=== PATIENT | female | born 1985 | race Caucasian/White ===

== ENCOUNTER 2020-10-13 09:16 | Emergency (ER) | payer OTHER ==
[2020-10-13 11:13] LABS: BASOPHIL 0.2 % (0-2); EOSINOPHIL 0.1 % (0-5); HCT 43.2 % (37.0-47.0); HGB 14.9 g/dl (12.5-16.0); LYMPHOCYTE 10.4 % (15-48); MCH 31.8 pg (25.0-31.0); MCHC 34.5 g/dL (32.0-36.0); MCV 92.1 fL (78.0-100.0); MONOCYTE 4.1 % (0-12); MPV 9.7 fL (6.0-9.5); NEUTROPHIL 84.9 % (41-80); NRBC 0; PLT 204 K/uL (150-400); RBC 4.69 M/uL (4.20-5.40); RDW 12.3 % (11.5-14.0); WBC 12.5 K/uL (4.0-10.5)
[2020-10-13 11:14] LABS: BILIRUBIN NEGATIVE (NEGATIVE); BLOOD TRACE-INTACT Ery/uL (NEGATIVE); CLARITY CLEAR (CLEAR); COLOR YELLOW (YELLOW); GLUCOSE (U) NORMAL (NORMAL); LEUKOCYTES TRACE Leu/uL (NEGATIVE); NITRITE NEGATIVE (NEGATIVE); PROTEIN NEGATIVE (NEGATIVE); UROBILINOGEN 0.2 mg/dL (0.2-1.0)
[2020-10-13 11:27] LABS: BACTERIA 1+; YEAST PRESENT
[2020-10-13 11:54] LABS: ALBUMIN 4.3 g/dL (3.4-5.0); BILIRUBIN - TOTAL 0.4 mg/dL (0.2-1.0); BUN/CREAT RATIO (CALC) 21.7 RATIO; CREATININE 0.6 mg/dL (0.51-0.95); GLOBULIN (CALCULATION) 3.5 g/dL; POTASSIUM 3.6 mmol/L (3.5-5.1); TOTAL PROTEIN 7.8 g/dL (6.4-8.2)
[2020-10-13] MEDS ORDERED: METRONIDAZOLE500 MG PO (13:15)
[2020-10-13] MEDS ORDERED: CIPRO500 MG PO (13:15)
[2020-10-13] MEDS ORDERED: BENTYL10 MG PO (13:15)
[2020-11-11] MEDS ORDERED: WELLBUTRIN75 MG PO (13:12)
== END 2020-10-13 13:58 | disposition home or self-care (01) ==
LOC: FER 09:16
PROVIDERS: Emergency Medicine
DX: K52.9 Noninfective gastroenteritis and colitis, unspecified (principal); N83.202 Unspecified ovarian cyst, left side; Z90.49 Acquired absence of other specified parts of digestive tract
CPT/HCPCS: 36415; 80053; 81001; 82150; 83690; 85025; 87088; Q9967

== ENCOUNTER → 2020-11-18 | Day surgery (SDC) | payer OTHER ==
[~2020-11-18] MED LIST: BENTYL10 MG PO; CIPRO500 MG PO; METRONIDAZOLE500 MG PO; WELLBUTRIN75 MG PO
[2020-11-18 07:45] LABS: HCG (URINE) SCREEN NEGATIVE (NEGATIVE)
[2020-11-18 08:13] LABS: HCT 46.3 % (37.0-47.0); HGB 15.8 g/dl (12.5-16.0); MCH 31.2 pg (25.0-31.0); MCHC 34.1 g/dL (32.0-36.0); MCV 91.3 fL (78.0-100.0); MPV 9.7 fL (6.0-9.5); RBC 5.07 M/uL (4.20-5.40); RDW 12.4 % (11.5-14.0)
[2020-11-18 08:38] LABS: ALBUMIN 4.6 g/dL (3.4-5.0); BUN/CREAT RATIO (CALC) 15.6 RATIO; CREATININE 0.64 mg/dL (0.51-0.95); GLOBULIN (CALCULATION) 3.5 g/dL; TOTAL PROTEIN 8.1 g/dL (6.4-8.2)
== END | disposition home or self-care (01) ==
LOC: FAS 07:27
PROVIDERS: Surgery
DX: R25.2 Cramp and spasm (principal); E55.9 Vitamin D deficiency, unspecified; F41.8 Other specified anxiety disorders; Z82.49 Family history of ischemic heart disease and other diseases of the circulatory system; Z83.3 Family history of diabetes mellitus; Z87.891 Personal history of nicotine dependence
CPT/HCPCS: 36415; 80053; 84703; J1610; J2250; J2704; J7120